=== PATIENT | male | born 1975 | race Caucasian/White ===

== ENCOUNTER 2020-05-10 12:29 | Emergency (ER) | payer OTHER ==
[~2020-05-10] VITALS: Ht 185.4 cm; Wt 102.0 kg
[2020-05-10 14:50] VITALS: BP 141/77
[2020-05-10] MEDS ORDERED: IBUPROFEN600 MG PO (14:50)
== END 2020-05-10 14:50 | disposition home or self-care (01) | DRG 563 ==
LOC: ED 12:29
DX: S93.402A Sprain of unspecified ligament of left ankle, initial encounter (principal); I10 Essential (primary) hypertension; X58.XXXA Exposure to other specified factors, initial encounter

== ENCOUNTER 2021-05-09 00:19 | Emergency (ER) | payer OTHER ==
[~2021-05-09] VITALS: Ht 185.4 cm; Wt 131.0 kg
[~2021-05-09 00:19] MED LIST: IBUPROFEN600 MG PO
[2021-05-09] MEDS ORDERED: BENICAR HCT1 TA2 PO (00:45)
[2021-05-09] MEDS ORDERED: MOTRIN400 MG/TAB PO (01:52)
[2021-05-09 02:00] VITALS: BP 158/89
[2021-08-07] MEDS ORDERED: B121000 MC1 PO (09:22)
[2021-08-07] MEDS ORDERED: LIPITOR20 M1 PO (09:22)
== END 2021-05-09 02:00 | disposition home or self-care (01) | DRG 563 ==
LOC: ED 00:19
DX: M23.92 Unspecified internal derangement of left knee (principal); I10 Essential (primary) hypertension; X50.0XXA Overexertion from strenuous movement or load, initial encounter; Y93.89 Activity, other specified; Y92.149 Unspecified place in prison as the place of occurrence of the external cause; Y99.0 Civilian activity done for income or pay

== ENCOUNTER 2021-06-12 01:31 | Emergency (ER) | payer BC ==
[~2021-06-12] VITALS: Ht 185.4 cm; Wt 136.0 kg
[~2021-06-12 01:31] MED LIST changes: +BENICAR HCT1 TA2 PO; +MOTRIN400 MG/TAB PO
[2021-06-12] MEDS ORDERED: IBUPROFEN600 MG PO (02:00)
[2021-06-12] MEDS ORDERED: ACETAMINOPHEN500 M1 PO (02:01)
[2021-06-12 04:00] VITALS: BP 134/78
[2021-08-07] MEDS ORDERED: B121000 MC1 PO (09:22)
[2021-08-07] MEDS ORDERED: LIPITOR20 M1 PO (09:22)
== END 2021-06-12 04:00 | disposition home or self-care (01) | DRG 563 ==
LOC: ED 01:31
DX: S29.011A Strain of muscle and tendon of front wall of thorax, initial encounter (principal); I10 Essential (primary) hypertension; F17.200 Nicotine dependence, unspecified, uncomplicated; X50.0XXA Overexertion from strenuous movement or load, initial encounter

== ENCOUNTER 2021-12-02 14:43 | Observation (INO) | payer OTHER ==
[~2021-12-02] VITALS: Ht 185.4 cm; Wt 136.0 kg
[~2021-12-02 14:43] MED LIST changes: +ACETAMINOPHEN500 M1 PO; +B121000 MC1 PO; +LIPITOR20 M1 PO
[2021-12-08] VITALS (9 sets, daily range): BP systolic 102–124; BP diastolic 49–61
--- NOTE | 2021-12-08 12:41 | NUR ---
RECEIVED FROM OR TO ICU 1. INTUBATED 8.0 ET TUBE 26 AT THE BOTTOM LIP. ACCESS CONTROL TV-550, FI02-65%, RATE-16, PEEP-5. 20GA TO RAC.
--- NOTE | 2021-12-08 14:00 | NUR ---
PROPOFOL INCREASED TO 50MCG/KG/MIN FOR PT COMFORT.
--- NOTE | 2021-12-08 15:41 | NUR ---
MALE VISITOR AT BEDSIDE.
[2021-12-08 16:20] LABS: HEMATOCRIT 44.4 % (39.0-50.0); HEMOGLOBIN 14.5 g/dl (14.0-18.0); MEAN CORPUSCULAR HGB 30.5 pG CALC (26.0-32.0); MEAN CORPUSCULAR HGB CONC 32.7 g/dL CAL (32.0-36.0); RED BLOOD COUNT 4.75 mill/uL (4.70-6.10); RED CELL DISTRI WIDTH 13.2 % (11.5-15.5)
[2021-12-08 16:23] LABS: MEAN CELL VOLUME 93.5 fL CALC (80.0-100.0)
--- NOTE | 2021-12-08 16:31 | NUR ---
FREQ RUNDS MADE TO ENSURE PT SAFETY.
[2021-12-08 16:42] LABS: ANION GAP 7 (6-22 (CALC)); BUN 12 mg/dL (9-20); BUN/CREATININE RATIO 14 (12-20 (CALC)); CARBON DIOXIDE 31 mmol/l (22-30); CHLORIDE 102 mmol/l (95-108); CREATININE 0.8 mg/dL (0.7-1.3); GFR > 60 ML/MIN (>=60 (CALC)); GFR FOR AFR.AMER. > 60 ML/MIN (>=60 (CALC)); MAGNESIUM 1.4 mg/dL (1.6-2.3); POTASSIUM 4.5 mmol/l (3.5-5.1); SODIUM 136 mmol/l (137-146)
--- NOTE | 2021-12-08 18:57 | NUR ---
ANCEF MIXED BY RN AND INFUSING AT THIS TIME.
--- NOTE | 2021-12-08 19:45 | NUR ---
PATIENT IS INTUBATED, ON VENT AND SEDATED ON PROPOFOL GTT AT 50 MCG/KG/MIN WITH RASS -4. VENT SETTINGS PER INTERVENTION SCREEN. BREATH SOUNDS SLT DIMINISHED, ESSENTIALLY CLEAR. GENTLY SUX ORAL CAVITY FOR SMALL AMOUNT RED SECRETIONS. SHIFT ASSESSMENT COMPLETED. VSS. BILATERAL WRIST RETRAINTS IN PLACE. SCD'S ON. PUMP AND BLOWER OPERATOR SHOWS SR.
--- NOTE | 2021-12-08 22:00 | NUR ---
RESTING CALMLY AND QUIETLY. RASS -4. VSS. SR ON MONITOR .
[2021-12-09] VITALS (25 sets, daily range): BP systolic 69–145; BP diastolic 33–95
--- NOTE | 2021-12-09 | NUR ---
PATIENT OPENS EYES BRIEFLY TO NAME. NODS HEAD TO YES AND NO QUESTIONS. FOLLOWS SOME SIMPLE COMMANDS. VSS. RESP NON-LABORED. MONITOR SR. REMAINS ON VENT SAME SETTINGS. REMAINS ON PROPOFOL FOR SEDATION. RASS -2.
--- NOTE | 2021-12-09 00:45 | NUR ---
BP DROPPED TO 80/33. PATIENT DIAPHORETIC. SPOT CHECK BS, ACCU CHECK 111. DIPRIVAN OFF AT THIS TIME. WILL MONITOR CLOSELY.
--- NOTE | 2021-12-09 01:00 | NUR ---
BP COMING UP 92/42. PATIENT DROWSY, OPENS EYES TO NAME. SR ON MONITOR.
--- NOTE | 2021-12-09 01:30 | NUR ---
PATIENT WITH EYES OPEN. MOTIONS TO REMOVE WRIST RESTRAINTS. EXPLAINED TO PATIENT RESTRAINTS ARE TO PROTECT ETT. EMOTIONAL SUPPORT AND REASSURANCE PROVIDED TO PATIENT. DIPRIVAN GTT RESTARTED AT 20 MCG/KG/MIN.
--- NOTE | 2021-12-09 02:30 | NUR ---
BP 90'S/50'S. PROPOFOL GTT DECREASED TO 15 MCG/KG/MIN. PATIENT IS DROWSY BUT AROUSES. RASS -2 TO -1.
--- NOTE | 2021-12-09 04:00 | NUR ---
RESTING WITH EYES CLOSED. VSS. RASS -2. SR ON MONITOR. LARRY EVENT SETTINGS.
--- NOTE | 2021-12-09 04:45 | NUR ---
NO CHANGES TO REPORT.
--- NOTE | 2021-12-09 07:05 | NUR ---
RECEIVED REPORT FROM OFF GOING NURSE.
--- NOTE | 2021-12-09 07:58 | NUR ---
DR CRAIG ROUNDING ON PT WITH RT.
--- NOTE | 2021-12-09 09:52 | NUR ---
RT IN ROOM READY TO EXTUBATE PT.
--- NOTE | 2021-12-09 09:53 | NUR ---
PT EXTUBATED AT THIS TIME 0953. PLACED ON 2L NC.
--- NOTE | 2021-12-09 09:57 | NUR ---
PT. ASSESSED FOR EXTUBATION RSBI 68. PT. SQUEEZES HAND LIFTS HEAD FROM PILLOW AND FOLLOWS COMMANDS. DR. BROWN NOTIFIED OREDED TO EXTUBATE AT THIS TIME. EXTUBATED TO 3L NC. SATS ARE 91%
--- NOTE | 2021-12-09 11:23 | NUR ---
VISITING AT BEDSIDE.
--- NOTE | 2021-12-09 11:37 | NUR ---
[facility] REMOVED PER PT REQUEST.
--- NOTE | 2021-12-09 13:58 | NUR ---
DR RANGEL IN TO SEE PT.
--- NOTE | 2021-12-09 14:18 | NUR ---
SITTING UP IN RECLINER.
--- NOTE | 2021-12-09 15:48 | NUR ---
ambulate to bathroom to have bm independenly.
--- NOTE | 2021-12-09 17:27 | NUR ---
SITTING UP IN RECLINER.
--- NOTE | 2021-12-09 18:13 | NUR ---
had dinner tolerated well. sitting up in recliner watching phone.
--- NOTE | 2021-12-09 20:00 | NUR ---
SITTING UP IN CHAIR. ALERT AND ORIENTED. REP NON-LABORED. O2 SAT 98% ON ROOM AIR. CLEAR LUNGS. IV IN LAC, SITE BENIGN, LR INFUSING AT 50 ML/HR. THYROIDECTOMY INC LINE CLEAN, DRY AND WELL APPROXIMATED. SHIFT ASSESSMEMENT COMPLETED. DISCUSSED PLAN OF CARE. DENIES NEEDS AT THIS TIME. CALL MAYS IN REACH.
--- NOTE | 2021-12-09 21:00 | NUR ---
PATIENT AMBULATED INDEPENDENTLY TO BR FOR BM.
--- NOTE | 2021-12-09 22:00 | NUR ---
SITTING UP IN CHAIR WATCHING TV. NO C/O VOICED.
[2021-12-10] VITALS: BP 155/69
--- NOTE | 2021-12-10 | NUR ---
PATIENT ASLEEP IN RECLINER. AWAKENS TO NAME. PATIENT STATES HE WISHES TO STAY IN RECLINER TONIGHT. IV INFUSING WITHOUT INCIDENT.
--- NOTE | 2021-12-10 05:52 | NUR ---
PATIENT SLEPT ON AND OFF IN RECLINER. RESP NON-LABORED. INC LINE TO NECK CDI. IV INFUSING WITHOUT INCIDENT TO LAC.
--- NOTE | 2021-12-10 08:09 | NUR ---
dr powers in rounding on pt.
[2021-12-10] MEDS ORDERED: PERCOCET 5/325M1 TAB PO (09:52)
[2021-12-10] MEDS ORDERED: LEVOTHROID125 MCG PO (10:03)
--- NOTE | 2021-12-10 10:21 | NUR ---
received discharge orders.
--- NOTE | 2021-12-10 10:26 | NUR ---
DR RANGEL IN WITH PT GIVING POST OP CARE INSTRUCTIONS.
--- NOTE | 2021-12-10 10:42 | NUR ---
DISCHARGE PAPERWORK PROVIDED. SIGNED DISCHARGE. AWAITING TO BRING CHANGE OF CLOTHES.
--- NOTE | 2021-12-10 10:57 | NUR ---
PIV TO LAC REMOVED TOLERATED WELL.
--- NOTE | 2021-12-10 11:00 | NUR ---
ARRIVED. PT NOW DRESSED. AMBULATES OUT OF UNIT ACCOMPANIED BY .
== END 2021-12-10 11:01 | disposition home or self-care (01) | DRG 625 ==
LOC: MS2 12-08 08:03 → EDSTATUS 12-08 11:00 → ORM 12-08 11:00 → ICU 12-08 12:41
PROVIDERS: Nurse Practitioner; ADMIT Surgery; ATTEND Surgery
PROC: 0GTK0ZZ Resection of Thyroid Gland, Open Approach (ICD-10-PCS; principal; 2021-12-08)
PROC: 0GTJ0ZZ Resection of Thyroid Gland Isthmus, Open Approach (ICD-10-PCS; 2021-12-08)
PROC: 0BH17EZ Insertion of Endotracheal Airway into Trachea, Via Natural or Artificial Opening (ICD-10-PCS; 2021-12-08)
PROC: 5A1935Z Respiratory Ventilation, Less than 24 Consecutive Hours (ICD-10-PCS; 2021-12-08)
DX: E04.2 Nontoxic multinodular goiter (principal); J81.0 Acute pulmonary edema; I10 Essential (primary) hypertension; E78.5 Hyperlipidemia, unspecified; F17.210 Nicotine dependence, cigarettes, uncomplicated
CPT/HCPCS: C9290; J3475

== ENCOUNTER 2024-01-19 06:54 | Day surgery (SDC) | payer BC ==
[~2024-01-19] VITALS: Ht 182.9 cm; Wt 132.4 kg
[~2024-01-19 06:54] MED LIST changes: +BACLOFEN20 MG PO; +DILTIAZEM HCI120 MG PO; +HYZAAR1 TA1 PO; +LEVOTHROID125 MCG PO; +LEVOTHYROXIN150 MC1 PO; +LIPITOR40 M1 PO; +METFORMIN HCL500 M1 PO; +MOUNJARO2.5 MG SC; +PERCOCET 5/325M1 TAB PO; +TRICOR145 MG PO
[2024-01-19] MEDS ORDERED: SODIUM CHLORIDE 0.9% 1,000 ML IV ONE (07:14)
[2024-01-19] MEDS ORDERED: FAMOTIDINE 10MG/ML 2ML SDV IV ONE (07:14)
[2024-01-19 10:07] VITALS: BP 114/70
[2024-01-19] MEDS ORDERED: STERILE WATER FOR IRRIGATION 1,000 ML BTL IR ONE (12:36)
[2024-01-19] MEDS ORDERED: GLYCOPYRROLATE 0.2 MG/ML IV ONE (12:54)
[2024-01-19] MEDS ORDERED: LIDOCAINE HCL 2% 2ML SDV IV ONE (12:54)
[2024-01-19] MEDS ORDERED: PROPOFOL 200 MG/20 ML VIAL IV ONE (12:54)
== END 2024-01-19 10:55 | disposition home or self-care (01) | DRG 951 ==
LOC: ENDO 06:54 → ORM 08:00 → ENDO 08:00
PROVIDERS: ATTEND Surgery
PROC: 0DBH8ZX Excision of Cecum, Via Natural or Artificial Opening Endoscopic, Diagnostic (ICD-10-PCS; principal; 2024-01-19)
PROC: 0DBL8ZX Excision of Transverse Colon, Via Natural or Artificial Opening Endoscopic, Diagnostic (ICD-10-PCS; 2024-01-19)
PROC: 0DBN8ZX Excision of Sigmoid Colon, Via Natural or Artificial Opening Endoscopic, Diagnostic (ICD-10-PCS; 2024-01-19)
DX: Z12.11 Encounter for screening for malignant neoplasm of colon (principal); D12.5 Benign neoplasm of sigmoid colon; D12.3 Benign neoplasm of transverse colon; D17.5 Benign lipomatous neoplasm of intra-abdominal organs; K57.30 Diverticulosis of large intestine without perforation or abscess without bleeding; K63.5 Polyp of colon; I10 Essential (primary) hypertension; E11.9 Type 2 diabetes mellitus without complications; Z79.84 Long term (current) use of oral hypoglycemic drugs